=== PATIENT | male | born 1955 | race Caucasian/White ===

== ENCOUNTER 2025-05-20 13:23 | Inpatient (IN) | payer BC, MEDICARE ==
[~2025-05-20] VITALS: Ht 177.8 cm; Wt 85.4 kg
[2025-05-20 14:39] LABS: BASO # 0.1 10^3/uL (0.0-0.2); BASO % 0.4 % (0.0-1.0); EOS # 0.0 10^3/uL (0.0-0.5); EOS % 0.0 % (0.0-3.0); LYMPH # 1.3 10^3/uL (1.5-5.0); LYMPH % 9.8 % (24.0-44.0); MONO # 0.8 10^3/uL (0.0-0.8); MONO % 6.0 % (2.0-8.0); NEUTROPHILS # 10.7 10^3/uL (1.5-8.5); NEUTROPHILS % 83.6 % (36.0-66.0); PLATELET COUNT, AUTOMATED 381 10^3/uL (150-450)
[2025-05-20 14:54] LABS: ETHYL ALCOHOL (ETHANOL) 0.005 % (0.000-0.010)
[2025-05-20 14:55] LABS: CALCIUM LEVEL 10.2 MG/DL (8.3-10.6); CARBON DIOXIDE LEVEL 24.0 MMOL/L (20-31); CHLORIDE LEVEL 101.0 MMOL/L (98-107); CREATININE FOR GFR 0.96 MG/DL (0.70-1.30); GLOMERULAR FILTRATION RATE 85.0 (>42); POTASSIUM SERUM 5.2 MMOL/L (3.5-5.1); SODIUM LEVEL 137.0 MMOL/L (136-145)
[2025-05-20] MEDS ORDERED: ISOVUE-370 76% 100 ML VIAL As Ordered ONE (15:02)
[2025-05-20] MEDS ORDERED: LISI20TA33 PO (15:44)
[2025-05-20] MEDS ORDERED: HOME MED LIST COMPLETE! XX SCH (15:45)
[2025-05-20 17:06] LABS: ALT/SGPT 32.0 U/L (7.0-40); AST/SGOT 31.0 U/L (<34)
[2025-05-20] MEDS: CIPROFLOXACIN 400 MG in IV 1 EA IV ONE (18:26)
[2025-05-20] MEDS: metroNIDAZOLE 500 MG in IV 1 EA IV ONE (19:10)
[2025-05-20 20:10] LABS: BASO # 0.0 10^3/uL (0.0-0.2); BASO % 0.4 % (0.0-1.0); EOS # 0.0 10^3/uL (0.0-0.5); EOS % 0.2 % (0.0-3.0); LYMPH # 2.3 10^3/uL (1.5-5.0); LYMPH % 20.1 % (24.0-44.0); MONO # 0.9 10^3/uL (0.0-0.8); MONO % 7.6 % (2.0-8.0); NEUTROPHILS # 8.1 10^3/uL (1.5-8.5); NEUTROPHILS % 71.3 % (36.0-66.0); PLATELET COUNT, AUTOMATED 342 10^3/uL (150-450)
[2025-05-20] MEDS: HEPARIN SOD 5000 UNITS/ML 1 ML VIAL/SYRINGE SC SCH (21:00)
[2025-05-20] MEDS ORDERED: PROHANCE 279.3MG/ML 15ML VIAL As Ordered ONE (21:31)
[2025-05-20] MEDS ORDERED: PROHANCE 279.3MG/ML 5ML VIAL As Ordered ONE (21:31)
[2025-05-20] MEDS: LR 1,000 ML IV SCH (22:17)
[2025-05-20] MEDS: THIAMINE 100 MG TAB PO SCH (22:17)
[2025-05-21 00:39] LABS: ESTIMATED AVERAGE GLUCOSE 105.0 MG/DL (60-110)
[2025-05-21] MEDS: PIPERACILLIN/TAZOBACTAM SOD 3.375 GM in DEXTROSE 5% (D5W) ADV/MINI-BAG 50 ML IV SCH (01:13)
[2025-05-21 07:32] LABS: PLATELET COUNT, AUTOMATED 305 10^3/uL (150-450)
[2025-05-21 08:12] LABS: ALT/SGPT 22 U/L (7.0-40); AST/SGOT 19 U/L (<34); CALCIUM LEVEL 8.8 MG/DL (8.3-10.6); CARBON DIOXIDE LEVEL 27 MMOL/L (20-31); CHLORIDE LEVEL 101 MMOL/L (98-107); CREATININE FOR GFR 0.86 MG/DL (0.70-1.30); GLOMERULAR FILTRATION RATE > 90.0 (>42); POTASSIUM SERUM 4.0 MMOL/L (3.5-5.1); SODIUM LEVEL 137 MMOL/L (136-145)
[2025-05-21] MEDS: MULTIVITAMINS/MINERALS THERAP 1 TAB PO SCH (08:19)
[2025-05-21] MEDS: FOLIC ACID 1 MG TAB PO SCH (08:20)
[2025-05-21 12:24] VITALS: BP 130/66; TEMP 98.4; O2SAT 98
[2025-05-21 16:30] VITALS: BP 138/80; TEMP 97.9; O2SAT 99
[2025-05-21 20:24] VITALS: BP 116/67; TEMP 98.4; O2SAT 97
[2025-05-22] VITALS: BP 121/76; TEMP 97.7; O2SAT 98
[2025-05-22 04:20] VITALS: BP 125/76; TEMP 98; O2SAT 98
[2025-05-22 06:30] LABS: PLATELET COUNT, AUTOMATED 331 10^3/uL (150-450)
[2025-05-22 06:59] LABS: ALT/SGPT 22.0 U/L (7.0-40); AST/SGOT 18.0 U/L (<34); CALCIUM LEVEL 9.0 MG/DL (8.3-10.6); CARBON DIOXIDE LEVEL 26.0 MMOL/L (20-31); CHLORIDE LEVEL 104.0 MMOL/L (98-107); CREATININE FOR GFR 0.99 MG/DL (0.70-1.30); GLOMERULAR FILTRATION RATE 82.0 (>42); POTASSIUM SERUM 4.1 MMOL/L (3.5-5.1); SODIUM LEVEL 138.0 MMOL/L (136-145)
[2025-05-22 08:00] VITALS: BP 136/82; TEMP 97.5; O2SAT 94
[2025-05-22 08:12] VITALS: BP 136/82
[2025-05-22] MEDS ORDERED: CIPR500T39 PO (09:34)
[2025-05-22] MEDS ORDERED: PROB250C PO (09:34)
[2025-05-22] MEDS ORDERED: METR-265 PO (09:34)
[2025-05-22 12:00] VITALS: BP 130/80; TEMP 97.3; O2SAT 92
== END 2025-05-22 13:50 | disposition home or self-care (01) | DRG 720 ==
LOC: M ED 13:23 → EDBD 13:23 → M ED INP 19:05 → M MSPAV 05-21 12:22
PROVIDERS: ADMIT Student in an Organized Health Care Education/Training Program; ATTEND Internal Medicine
PROC: B246ZZZ Ultrasonography of Right and Left Heart (ICD-10-PCS; principal; 2025-05-21)
DX: A41.9 Sepsis, unspecified organism (principal); K57.81 Diverticulitis of intestine, part unspecified, with perforation and abscess with bleeding; D62 Acute posthemorrhagic anemia; R55 Syncope and collapse; I10 Essential (primary) hypertension; D72.829 Elevated white blood cell count, unspecified; R93.3 Abnormal findings on diagnostic imaging of other parts of digestive tract; R93.1 Abnormal findings on diagnostic imaging of heart and coronary circulation; Z79.899 Other long term (current) drug therapy